=== PATIENT | male | born 1990 | race Caucasian/White ===

== ENCOUNTER 2021-09-12 16:12 | Emergency (ER) | payer OTHER ==
[~2021-09-12] VITALS: Ht 175.3 cm; Wt 81.6 kg
[2021-09-12] MEDS ORDERED: SOD BORATE/BORIC AC/H2O/NACL 118 ML BOTTLE ONE (16:28)
--- NOTE | 2021-09-12 16:32 | NUR ---
ASKER Addendum: 09/12/21 at 1632 by XENIA ASKED TO WASH HIS EYES AND FACE IN THE SINK
--- NOTE | 2021-09-12 19:10 | NUR ---
WARM BLANKET AND FOOD PROVIDED. PT REFUSED TO SIGN DISCHARGE PAPERS.
--- NOTE | 2021-09-12 19:14 | NUR ---
Patient discharged to home in stable condition. Written and verbal after care instructions given. Patient verbalizes understanding of instruction.
== END 2021-09-12 19:15 | disposition home or self-care (01) ==
LOC: ER 16:15
DX: H10.213 Acute toxic conjunctivitis, bilateral (principal)

== ENCOUNTER 2021-10-22 13:41 | Emergency (ER) | payer OTHER ==
[~2021-10-22] VITALS: Ht 177.8 cm; Wt 95.3 kg
[2021-10-22 13:46] VITALS: BP 116/62
--- NOTE | 2021-10-22 14:18 | NUR ---
SEEN AND EXAMINED BY .
[2021-10-22] MEDS ORDERED: IBUPROFEN 600 MG TABLET PO ONE (15:00)
[2021-10-22] MEDS ORDERED: ACETAMINOPHEN 325 MG TABLET PO ONE (15:00)
[2021-10-22] MEDS ORDERED: ACETAMINOPHEN 325 MG TABLET ONE (15:21)
[2021-10-22] MEDS ORDERED: IBUPROFEN 600 MG TABLET ONE (15:21)
--- NOTE | 2021-10-22 15:34 | NUR ---
Patient discharged in custody in stable condition. Written and verbal after care instructions given. Patient verbalizes understanding of instruction.
== END 2021-10-22 15:36 ==
LOC: ER 13:43
DX: S62.324A Displaced fracture of shaft of fourth metacarpal bone, right hand, initial encounter for closed fracture (principal); F17.200 Nicotine dependence, unspecified, uncomplicated; Z60.2 Problems related to living alone; X58.XXXA Exposure to other specified factors, initial encounter; Y93.89 Activity, other specified; Y92.89 Other specified places as the place of occurrence of the external cause; Y99.8 Other external cause status
CPT/HCPCS: 73130-TC